=== PATIENT | male | born 1955 | race Caucasian/White ===

== ENCOUNTER → 2020-10-13 | Outpatient (CLI) | payer MEDICARE, OTHER ==
[~2020-10-13] MED LIST: ADVAIR 250-501 EACH INH; AUGMENTIN 875-1 EACH PO; CARDIZEM CD120 MG PO; CEFUROXIME500 MG PO; DIGOXIN250 MCG PO; ECOTRIN81 MG PO; ELIQUIS 5 MG TAB5 MG PO; IPRAT-ALBUT 0.5-3 ML INH; KLONOPIN1 MG PO; LASIX40 MG PO; NASONEX17 GM; POTASSIUM CHLO20 ME1 PO; SINGULAIR10 MG PO; SPIRIVA18 MCG INH; SYNTHROID 50 M50 MCG PO; XOPENEX1.25 MG/3 INH
== END ==
LOC: KOH-I 10-11 14:30
DX: R14.0 Abdominal distension (gaseous) (principal); K92.1 Melena
CPT/HCPCS: 74176